=== PATIENT | male | born 2000 | race Caucasian/White ===

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

== ENCOUNTER 2020-09-06 23:00 | Emergency (ER) | payer SELFPAY ==
[~2020-09-06] VITALS: Ht 182.9 cm; Wt 100.0 kg
[2020-09-06 23:51] VITALS: TEMP 98.8
[2020-09-07 01:25] LABS: BASO % 0.4 % (0.0-2.0); EOS # 0.2 (0.0-0.7); EOS % 2.1 % (0-4.0); GRAN # 5.5 (1.4-6.5); GRAN % 64.8 % (42.2-75.2); HEMATOCRIT 40.3 % (36.0-47.0); HEMOGLOBIN 13.8 g/dl (12.5-16.1); LYMPH # 1.7 (1.2-3.4); LYMPH % 20.1 % (20.0-51.0); MEAN CELL VOLUME 85 fl (80.0-95.0); MEAN CORPUSCULAR HEMOGLOBIN 29 pg (26.0-32.0); MEAN CORPUSCULAR HGB CONC 34 g/dl (33.0-37.0); MEAN PLATELET VOLUME 9.8 fl (7.4-10.4); MONO # 1.1 (0.1-0.6); MONO % 12.5 % (1.7-9.3); PLATELET COUNT 191 K/mm3 (130-400); RED BLOOD COUNT 4.75 M/mm3 (4.20-5.60); REDCELL DISTRIBUTION WIDTH-CV 13.2 % (11.5-14.5)
[2020-09-07 01:37] LABS: ALBUMIN 3.5 gm/dL (3.5-5.0); BILIRUBIN,TOTAL 0.5 mg/dL (0.0-1.0); CALCIUM 8.6 mg/dL (8.4-10.2); CREATININE, serum 1.55 (0.66-1.25); POTASSIUM 3.7 mmol/L (3.4-5.0); TOTAL PROTEIN 6.3 gm/dL (6.4-8.2)
[2020-09-07 03:30] VITALS: BP 132/70; PULSE 68
[2020-09-07] MEDS ORDERED: ZOFRAN ODT4 MG PO (03:31)
== END 2020-09-07 03:30 | disposition home or self-care (01) ==
LOC: COL.ER 23:00
PROVIDERS: Personal Emergency Response Attendant
DX: R10.31 Right lower quadrant pain (principal); E86.0 Dehydration; R11.0 Nausea
CPT/HCPCS: J2270; J2405; J7030; Q9967